=== PATIENT | female | born 1990 | race Caucasian/White ===

== ENCOUNTER → 2016-06-02 | Outpatient (CLI) | payer OTHER | END | disposition home or self-care (01) | LOC: GMAJ 10:10 | PROVIDERS: ATTEND Family Medicine | DX: M79.672 Pain in left foot (principal) ==

== ENCOUNTER → 2016-06-10 | Outpatient (CLI) | payer OTHER ==
--- NOTE | 2016-06-11 07:36 | US ---
Study: Left lower extremity venous Doppler sonogram. Indication: EDEMA Technical: Multiplanar grayscale and Doppler sonographic images of the deep veins of the left lower extremity obtained. Findings: There is no sonographic evidence of deep venous thrombosis. The deep veins of the left lower extremity compress normally and have appropriate duplex waveforms. Normal flow augmentation is noted as well. Conclusion: 1. No sonographic evidence of deep venous thrombosis of the left lower extremity. 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
== END | disposition home or self-care (01) ==
LOC: US 08:47
PROVIDERS: ATTEND Family Medicine
DX: R59.0 Localized enlarged lymph nodes (principal); R60.0 Localized edema

== ENCOUNTER → 2016-06-29 | Outpatient (CLI) | payer OTHER | END | disposition home or self-care (01) | LOC: GMAJ 15:07 | PROVIDERS: ATTEND Family Medicine | DX: I80.202 Phlebitis and thrombophlebitis of unspecified deep vessels of left lower extremity (principal) ==

== ENCOUNTER → 2017-06-07 | Outpatient (CLI) | payer BC | LOC: GMALS 10:26 | PROVIDERS: ATTEND Nurse Practitioner Acute Care | DX: E53.9 Vitamin B deficiency, unspecified (principal) ==

== ENCOUNTER → 2018-09-28 | Outpatient (CLI) | payer BC | LOC: GMAJ 17:02 | PROVIDERS: ATTEND Family Medicine | DX: R10.13 Epigastric pain (principal) ==

== ENCOUNTER → 2019-02-08 | Outpatient (CLI) | payer BC | LOC: GMAJ 15:49 | PROVIDERS: ATTEND Family Medicine | DX: R60.0 Localized edema (principal) ==

== ENCOUNTER → 2019-04-17 | Outpatient (CLI) | payer BC | LOC: GMALS 16:43 | PROVIDERS: ATTEND Nurse Practitioner Acute Care | DX: D50.9 Iron deficiency anemia, unspecified (principal); L65.9 Nonscarring hair loss, unspecified; R39.15 Urgency of urination; E53.9 Vitamin B deficiency, unspecified ==

== ENCOUNTER → 2020-04-26 | Outpatient (CLI) | payer BC | LOC: GMAJ 12:20 | PROVIDERS: ATTEND Family Medicine | DX: Z00.00 Encounter for general adult medical examination without abnormal findings (principal) ==

== ENCOUNTER → 2020-05-02 | Outpatient (CLI) | payer BC ==
--- NOTE | 2020-05-02 16:45 | US ---
EXAM: Soft Tissue,Head/Neck INDICATION: 29 years Female, ENLARGED LYMPH NODES. Patient reports a palpable area of concern in the left neck. COMPARISON: None available TECHNIQUE: Real time sonographic examination was performed by a reclamation worker and multiple longitudinal and transverse ultrasound images through the thyroid gland were acquired. Doppler was also performed. FINDINGS: The right thyroid lobe measures 4.6 x 1.6 x 1.7 cm. The left thyroid lobe measures 3.4 x 1.4 x 1.7 cm. The isthmus measures 0.3 cm. The thyroid gland is normal in size and echogenicity. No hyperemia. No discrete thyroid nodules are seen. A slightly prominent lymph node is identified in the left neck at the palpable area of concern, measuring up to 1.1 cm in greatest dimension. Cortical thickness is within normal limits at approximately 1.5 mm. A benign-appearing fatty hilum is identified. A second slightly prominent lymph node is identified nearby, measuring up to 1.4 cm in greatest dimension, also with a benign-appearing fatty hilum and thin cortex measuring less than 3 mm. IMPRESSION: 1. Unremarkable ultrasound examination of the thyroid gland. 2. Two slightly prominent lymph nodes are identified at the palpable area of concern in the left neck. Both demonstrate benign-appearing fatty ferny and thin cortices. These are favored to be benign, possibly reactive. Electronically signed by: Courtney Souza MD 05/02/2020 4:44 PM [facility]
== END ==
LOC: US 09:07
PROVIDERS: ATTEND Family Medicine
DX: R59.9 Enlarged lymph nodes, unspecified (principal)

== ENCOUNTER 2020-05-09 10:00 | Day surgery (SDC) | payer BC ==
[~2020-05-09 10:00] MED LIST: DEXAMETHASONE INJ 10 MG/ML VIAL ONE; KETOROLAC TROMETHAMINE INJ 30 MG/ML VIAL ONE; LACTATED RINGERS 1,000 ML ONE; LIDOCAINE 1% 10 ML VIAL INJ ONE; PROPOFOL 200 MG/20 ML VIAL IV ONE; fentaNYL CITRATE INJ 50 MCG/ML 2 ML AMP ONE
[2020-05-09] MEDS ORDERED: BUPIVACAINE 0.25% W/EPI 50 ML VIAL INJ ONE ×2 (10:18→11:11)
[2020-05-09] MEDS ORDERED: diphenhydrAMINE HCL 50 MG/ML VIAL ONE (10:48)
[2020-05-09] MEDS ORDERED: diphenhydrAMINE HCL 50 MG/ML VIAL IV ONE (10:50)
[2020-05-09] MEDS ORDERED: MIDAZOLAM INJ 2 MG/2 ML VIAL ONE (11:05)
[2020-05-09] MEDS ORDERED: SODIUM BICARBONATE VIAL 50 MEQ/50 ML VIAL ONE (11:10)
[2020-05-09] MEDS ORDERED: SODIUM BICARBONATE VIAL 50 MEQ/50 ML VIAL IV ONE (11:11)
[2020-05-09] MEDS ORDERED: fentaNYL CITRATE INJ 50 MCG/ML 2 ML AMP ONE (11:34)
[2020-05-09] MEDS ORDERED: ACETAMINOPHEN W/COD #3 TAB 1 EA TAB ONE (12:14)
[2020-05-09] MEDS ORDERED: ACETAMINOPHEN W/COD #3 TAB 1 EA TAB PO ONE (12:20)
[2020-05-09 12:29] VITALS: O2SAT 100
--- NOTE | 2020-05-09 13:08 | OP ---
DATE OF PROCEDURE: 05/09/20 PREOPERATIVE DIAGNOSIS: 1. Left sided lymphadenopathy and pain. POSTOPERATIVE DIAGNOSIS: 1. Left sided lymphadenopathy and pain. PROCEDURE: 1. Excision of left posterior triangle of cervical lymph node. SURGEON: Rico Dave MD ANESTHESIA: General and local with Barber Vera CRNA. FINDINGS: Approximately 1.5 cm to 2 cm node was identified. Also, it was just overlying the spinal accessory nerve which was identified, protected and spared. COMPLICATIONS: None. ESTIMATED BLOOD LOSS: None. CONDITION: Stable. PLAN: Discharge. INDICATION: This is a 29-year-old woman with a history of pain, night sweats, fever, neck swelling and a posterior cervical node that gets swollen and goes down. We were asked to evaluate her and excise this node. Risks and benefits were discussed. DESCRIPTION OF PROCEDURE: The patient was brought to the Operating Suite in supine position with held tilted to the right. General anesthesia was induced with propofol. The node was palpable. A small jeramie was made. A transverse incision was made along the skin lines. Subcutaneous tissues were taken down. We went through the superficial muscle layer and then could palpate the node. The tissue surrounding the node was spread gently and then as we got to both the apices of the node, nerve was identified, likely spinal accessory at this point. Knowing it was there, we then had to take the lymph node node. We used a couple of ties as well as a few small clips, removing the majority of the node. Some of the node did stay as it was very closely related to the nerve. Once that was removed, I examined the nerve a little more. It was still obviously intact. I could even feel the string of it going down to her shoulder. There was no evidence of nerve injury. The specimen was sent. There was excellent hemostasis. It was closed in 2 layers of absorbable suture. Dressing was applied. She tolerated the procedure and was taken to Recovery to be discharged. #[id number] MTDD
[2020-05-09 13:27] VITALS: BP 147/82; TEMP 96.8
== END 2020-05-09 12:45 | disposition home or self-care (01) ==
LOC: AMB 10:00
PROVIDERS: ATTEND Surgery
DX: R59.0 Localized enlarged lymph nodes (principal); Z90.710 Acquired absence of both cervix and uterus; F32.9 Major depressive disorder, single episode, unspecified; Z86.718 Personal history of other venous thrombosis and embolism; Z79.899 Other long term (current) drug therapy
CPT/HCPCS: 00320; 38510; J1100; J1200; J1885; J2250; J3010; J3490; J7120